=== PATIENT | male | born 1960 | race Caucasian/White ===

== ENCOUNTER 2018-07-14 20:09 | Emergency (ER) | payer OTHER ==
[2018-07-14] MEDS: Ketorolac 30 MG/ML SDV IM ONE (20:54)
[2018-07-14] MEDS: Take Home: predniSONE 20 MG, 2 Tab Pack PO ONE (20:56)
[2018-07-14] MEDS: predniSONE 20 MG Tab PO ONE (20:56)
--- NOTE | 2018-07-14 21:33 | EDM.PDOC ---
ED HPI GENERAL MEDICAL PROBLEM - General Chief Complaint: Lower Extremity Injury/Pain Stated Complaint: LEFT HIP AND GROIN PAIN Time Seen by Provider: 07/14/18 20:32 Source of Information: Reports: Patient History Limitations: Reports: No Limitations - History of Present Illness INITIAL COMMENTS - FREE TEXT/NARRATIVE: Patient reports chronic left hip pain with pain that is worsening over the last 3-4 days. He already has a right hip replacement. Pain is described as going around the front of the leg, like someone is twisting or squeezing a testicle. His hip also does lock at times while walking. He has no other complaints today. Does use a cane for ambulation and does already take numerous medications for chronic pain. Onset: Gradual Duration: Getting Worse Location: Reports: Lower Extremity, Left Quality: Reports: Sharp, Stabbing Severity: Moderate Improves with: Reports: Medication Worsens with: Reports: Movement Associated Symptoms: Reports: No Other Symptoms Left hip Pain Score (Numeric/FACES): 5 - Related Data Allergies Allergy/AdvReac Type Severity Reaction Status Date / Time No Known Allergies Allergy Verified 07/14/18 20:47 Home Meds: Home Meds Hydrocodone/Acetaminophen [Hydrocodon-Acetaminoph 7.5-325] 1 tab PO Q4H PRN [History] Levothyroxine 25 mcg PO DAILY 07/14/18 [History] Pantoprazole [ProTONIX] 40 mg PO DAILY 07/14/18 [History] Potassium Chloride 10 meq PO DAILY 07/14/18 [History] Prazosin HCl [Prazosin] 6 mg PO DAILY 07/14/18 [History] SitaGLIPtin [Januvia] 100 mg PO DAILY 07/14/18 [History] amLODIPine Besylate [Amlodipine Besylate] 5 mg PO DAILY 07/14/18 [History] atorvaSTATin Calcium [Atorvastatin Calcium] 80 mg PO DAILY 07/14/18 [History] fentaNYL [Fentanyl] 75 mcg TRDERM ASDIRECTED 07/14/18 [History] Review of Systems - Review of Systems Review Of Systems: See Below Constitutional: Reports: No Symptoms Eyes: Reports: No Symptoms Ears: Reports: No Symptoms Nose: Reports: No Symptoms Mouth/Throat: Reports: No Symptoms Respiratory: Reports: No Symptoms Cardiovascular: Reports: No Symptoms GI/Abdominal: Reports: No Symptoms Genitourinary: Reports: No Symptoms Musculoskeletal: Reports: Leg Pain (left hip pain) Skin: Reports: No Symptoms Neurological: Reports: No Symptoms Psychiatric: Reports: No Symptoms ED EXAM, GENERAL - Physical Exam Exam: See Below Exam Limited By: No Limitations General Appearance: Alert, WD/WN, Mild Distress Head: Atraumatic, Normocephalic Neck: Normal Inspection, Supple, Non-Tender, Full Range of Motion Respiratory/Chest: No Respiratory Distress, Lungs Clear, Normal Breath Sounds, No Accessory Muscle Use, Chest Non-Tender Cardiovascular: Normal Peripheral Pulses, Regular Rate, Rhythm, No Edema, No Gallop, No JVD, No Murmur, No Rub Peripheral Pulses: 2+: Posterior Tibial (L), Posterior Tibial (R), Dorsalis Pedis (L), Dorsalis Pedis (R) GI/Abdominal: Normal Bowel Sounds, Soft, Non-Tender, No Organomegaly, No Distention, No Abnormal Bruit, No Mass Extremities: Normal Inspection, No Pedal Edema, Normal Capillary Refill, Limited Range of Motion (left leg/hip) Neurological: Alert, Oriented, CN II-XII Intact, Normal Cognition, Normal Gait, Normal Reflexes, No Motor/Sensory Deficits Course - Vital Signs Last Recorded V/S: Last Vital Signs Temp 35.9 C 07/14/18 20:10 Pulse 57 L 07/14/18 20:10 Resp 16 07/14/18 20:10 BP 166/70 H 07/14/18 20:10 Pulse Ox - Orders/Labs/Meds Orders: Active Orders 24 hr Category Date Time Status Hip wo Cont Lt [CT] Stat Exams 07/14/18 20:32 Taken Meds: Medications Discontinued Medications Generic Name Dose Route Start Last Admin Trade Name Jalen PRN Reason Stop Dose Admin Ketorolac Tromethamine 30 mg 07/14/18 20:35 07/14/18 20:54 Toradol IM 07/14/18 20:36 30 mg ONETIME ONE Administration Prednisone 1 packet 07/14/18 20:35 07/14/18 20:56 Take Home: Prednisone 20 Mg, 2 Tab Pack PO 07/14/18 20:36 1 packet ONETIME ONE Administration Prednisone 40 mg 07/14/18 20:36 07/14/18 20:56 Prednisone PO 07/14/18 20:37 40 mg ONETIME ONE Administration - Re-Assessments/Exams Free Text/Narrative Re-Assessment/Exam: 07/15/18 10:[address] shows chronic arthritis and DJD. No acute abnormalities Departure - Departure Time of Disposition: 21:48 Disposition: Home, Self-Care 01 Condition: Good Clinical Impression: Degenerative joint disease of left hip Qualifiers: Osteoarthritis type: unspecified Qualified Code(s): M16.12 - Unilateral primary osteoarthritis, left hip - Discharge Information *PRESCRIPTION DRUG MONITORING PROGRAM REVIEWED*: Not Applicable *COPY OF PRESCRIPTION DRUG MONITORING REPORT IN PATIENT LOGAN: Not Applicable Instructions: Osteoarthritis, What You Need to Know About Osteoarthritis, Heat Therapy, [id number] Referrals: PCP,Not In Area [Primary Care Provider] - Forms: ED Department Discharge Additional Instructions: I have included the CT report and images on CD for you to take. Please follow up to have a potential hip injection. I have also given you a prescription with 1 refill for prednisone. Take this in the morning and with food. Any hip injection should be done under fluoroscopy and by either a interventional radiologist or measurement specialist. Please call with any questions or concerns. - Problem List & Annotations (1) Degenerative joint disease of left hip SNOMED Code(s): 529983581108855 Code(s): M16.12 - UNILATERAL PRIMARY OSTEOARTHRITIS, LEFT HIP Status: Acute Priority: Low Qualifiers: Osteoarthritis type: unspecified Qualified Code(s): M16.12 - Unilateral primary osteoarthritis, left hip - Problem List Review Problem List Initiated/Reviewed/Updated: Yes - My Orders Last 24 Hours: My Active Orders 07/14/18 20:32 Hip wo Cont Lt [CT] Stat - Assessment/Plan Last 24 Hours: My Active Orders 07/14/18 20:32 Hip wo Cont Lt [CT] Stat Assessment:: left hip degenerative joint disease Plan: I have included the CT report and images on CD for you to take. Please follow up to have a potential hip injection. I have also given you a prescription with 1 refill for prednisone. Take this in the morning and with food. Any hip injection should be done under fluoroscopy and by either a interventional radiologist or measurement specialist. Please call with any questions or concerns.
== END 2018-07-14 21:48 | disposition home or self-care (01) ==
LOC: VM.ED 20:09
DX: M16.12 Unilateral primary osteoarthritis, left hip (principal); Z79.899 Other long term (current) drug therapy
CPT/HCPCS: 73700; 96372; 99283; A9270; J1885